=== PATIENT | female | born 1990 | race African-American/Black ===

== ENCOUNTER → 2016-09-17 | Outpatient (CLI) | payer OTHER ==
[2016-02-19 19:19] VITALS: BP 138/82
[~2016-09-17] MED LIST: AMOX875T PO; HYDR15SO4 PO; NITR100C62 PO
--- NOTE | 2016-09-17 15:11 | RAD ---
Obstetrical ultrasound, 09/17/2016: History: , survey There is a single intrauterine fetus in a variable orientation. The biparietal diameter measures 5.0 cm compatible with a gestational age of 21-22 weeks. The femur length measurement suggest a gestational age of closer to 23 weeks. The average gestational age based on all of the measurements is 22 weeks and 0 days yielding a sonographic EDC of 01/21/2017. Normal activity and heart motion were seen. The heart rate was 152 bpm. No specific abnormality is detected. A normal amount of amniotic fluid is evident. The placenta lies anteriorly extending laterally on the left. Its inferior margin lies approximately 1.5 cm from the internal cervical os. The cervical length was best demonstrated on the post voiding views and measures 3.6 cm. IMPRESSION: 1. Single viable intrauterine fetus of 22 weeks gestational age as described above. 2. Low-lying placenta
== END | disposition home or self-care (01) ==
LOC: US 13:47
PROVIDERS: ATTEND Obstetrics & Gynecology
DX: O26.842 Uterine size-date discrepancy, second trimester (principal); Z3A.22 22 weeks gestation of pregnancy
CPT/HCPCS: 76805

== ENCOUNTER 2016-10-05 10:50 | Observation (INO) | payer OTHER ==
[2016-02-19 19:19] VITALS: BP 138/82
[2016-10-05] MEDS ORDERED: IV RINGERS,LACTATED 1000ML 1,000 ML IV SCH (11:28)
[2016-10-05 11:52] LABS: BILIRUBIN,URINE NEGATIVE (NEG); GLUCOSE,URINE NEGATIVE (NEG); NITRITE,URINE NEGATIVE (NEG); PH,URINE 6.5; PROTEIN,URINE NEGATIVE (NEG-TRACE); UROBILINOGEN,URINE 0.2 mg/dL (0.2 mg/dL)
== END 2016-10-05 13:05 | disposition home or self-care (01) ==
LOC: 3 SO LND 10:50
PROVIDERS: ADMIT Obstetrics & Gynecology; ATTEND Obstetrics & Gynecology
DX: O26.892 Other specified pregnancy related conditions, second trimester (principal); R10.2 Pelvic and perineal pain; Z3A.24 24 weeks gestation of pregnancy
CPT/HCPCS: 81003; G0378; G0379

== ENCOUNTER 2016-11-05 17:10 | Observation (INO) | payer OTHER ==
[2016-02-19 19:19] VITALS: BP 138/82
== END 2016-11-05 19:15 | disposition home or self-care (01) ==
LOC: 3 SO LND 17:10
PROVIDERS: ADMIT Obstetrics & Gynecology; ATTEND Obstetrics & Gynecology
DX: O26.893 Other specified pregnancy related conditions, third trimester (principal); R10.30 Lower abdominal pain, unspecified; Z3A.00 Weeks of gestation of pregnancy not specified
CPT/HCPCS: G0378; G0379

== ENCOUNTER → 2016-12-30 | Outpatient (CLI) | payer OTHER ==
[2016-02-19 19:19] VITALS: BP 138/82
--- NOTE | 2016-12-30 16:27 | RAD ---
EXAM: Obstetrics sonogram. HISTORY: Size and dates discrepancy. TECHNIQUE: Sonographic imaging of the gravid uterus was performed. COMPARISON: 09/17/2016. FINDINGS: There is a single intrauterine fetus in cephalic presentation with a heart rate of 132 bpm. There is body movement. The stomach, kidneys, spine and heart are unremarkable. There is a three-vessel umbilical cord. The amniotic fluid index is normal at 15.0 cm. There is an anterior placenta without evidence of placenta previa. The biparietal diameter is 8.4 cm, corresponding with 34 weeks and 0 days and the 4th percentile. The head circumference is 31.7 cm, corresponding with 35 weeks and 5 days and the 2nd percentile. The abdominal circumference is 32.6 cm, corresponding with 36 weeks and 3 days and the 57th percentile. The femoral length is 7.4 cm, corresponding with 37 weeks and 6 days and the 77th percentile. The head circumference to abdominal second ratio is 0.97. The estimated gestational age based on combined ultrasound measurements is 36 weeks and 0 days. The estimated weight is 2942 g. This corresponds at the 45th percentile for estimated gestational age based on LMP. IMPRESSION: Single intrauterine fetus in cephalic presentation with a heart rate of 132 bpm and estimated gestational age based on ultrasound measurements of 36 weeks and 0 days. The estimated weight is at the 45th percentile for estimated gestational age based on LMP. Note is made that the biparietal diameter and head circumference growth percentiles are significantly less than the abdominal circumference and femoral length percentiles, noted above. However, the head circumference to abdominal circumference ratio remains within normal limits.
== END | disposition home or self-care (01) ==
LOC: US 15:35
PROVIDERS: ATTEND Obstetrics & Gynecology
DX: O09.93 Supervision of high risk pregnancy, unspecified, third trimester (principal); O26.843 Uterine size-date discrepancy, third trimester; Z3A.36 36 weeks gestation of pregnancy
CPT/HCPCS: 76805

== ENCOUNTER 2017-01-01 20:46 | Observation (INO) | payer OTHER ==
[2016-02-19 19:19] VITALS: BP 138/82
[2017-01-01 21:22] LABS: BILIRUBIN,URINE NEGATIVE (NEG); GLUCOSE,URINE NEGATIVE (NEG); NITRITE,URINE NEGATIVE (NEG); PROTEIN,URINE NEGATIVE (NEG-TRACE); UROBILINOGEN,URINE 0.2 mg/dL (0.2 mg/dL)
[2017-01-01 21:32] LABS: BARBITURATES NEG (NEG); BENZODIAZEPINES NEG (NEG); CANNABINOIDS NEG (NEG); COCAINE NEG (NEG); METHADONE NEG (NEG); OPIATES NEG (NEG); PHENCYCLIDINE NEG (NEG)
[2017-01-01 21:33] LABS: RBC,URINE 0 /HPF (0-2); WBC,URINE OCC /HPF (0-4)
[2017-01-01 21:34] LABS: BACTERIA,URINE FEW /HPF (0-FEW); SQUAMOUS EPITHELIAL CELL,UR MOD /LPF
== END 2017-01-01 22:47 | disposition home or self-care (01) ==
LOC: 3 SO LND 20:46
PROVIDERS: ADMIT Obstetrics & Gynecology; ATTEND Obstetrics & Gynecology
DX: O62.9 Abnormality of forces of labor, unspecified (principal); Z3A.37 37 weeks gestation of pregnancy
CPT/HCPCS: 80307; 81001; G0378; G0379; G0479

== ENCOUNTER 2017-03-12 17:38 | Emergency (ER) | payer OTHER ==
[~2017-03-12] VITALS: Ht 170.2 cm; Wt 49.9 kg
[~2017-03-12 17:38] MED LIST changes: +IBUP-1060 PO
[2017-03-12 17:50] VITALS: BP 156/99
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
[2017-03-12] MEDS ORDERED: CYCL10TA2 PO (18:48)
[2017-03-12] MEDS ORDERED: NAPR500T4 PO (18:48)
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
== END 2017-03-12 18:55 | disposition home or self-care (01) ==
LOC: ER 17:38
DX: S20.219A Contusion of unspecified front wall of thorax, initial encounter (principal); F12.10 Cannabis abuse, uncomplicated; Y08.89XA Assault by other specified means, initial encounter; Y93.89 Activity, other specified; Y99.8 Other external cause status; Y92.89 Other specified places as the place of occurrence of the external cause
CPT/HCPCS: 71101; 99284

== ENCOUNTER 2017-11-06 19:21 | Emergency (ER) | payer SELFPAY, OTHER ==
[2017-11-07 07:10] LABS: NEGATIVE OBC STREP NEG; POSITIVE OBC STREP POS
== END 2017-11-06 20:15 | disposition home or self-care (01) ==
LOC: ER 20:15
DX: H66.93 Otitis media, unspecified, bilateral (principal); J34.89 Other specified disorders of nose and nasal sinuses; J02.9 Acute pharyngitis, unspecified
CPT/HCPCS: 87070; 87880; 99284

== ENCOUNTER 2018-01-02 13:26 | Emergency (ER) | payer SELFPAY ==
[~2018-01-02] VITALS: Ht 170.2 cm; Wt 54.4 kg
[~2018-01-02 13:26] MED LIST changes: +AMOX500C PO; +CYCL10TA2 PO; +NAPR-514 PO
[2018-01-02 15:20] VITALS: BP 113/60
--- NOTE | 2018-01-02 15:27 | RAD ---
Examination: 3 views of the right foot HISTORY: History of stepping. However, dorsal foot pain COMPARISON: None available. Findings/ impression: The alignment of the tarsal bones, tarsometatarsal joints, metatarsophalangeal joints grossly appears unremarkable. There is faint cortical lucency identified in the distal aspect of the medial cuneiform is seen only on the lateral view would be artifactual or a very subtle fracture. Correlate for point tenderness. Electronically signed by: Mustapha Perez MD (01/02/2018 3:23 PM) [facility]
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
[2018-01-02] MEDS ORDERED: HYDR-971 PO (15:44)
[2018-01-02] MEDS ORDERED: HYDROcodone/APAP 5/325MG 1 TAB TABLET PO ONE (16:45)
== END 2018-01-02 17:26 | disposition home or self-care (01) ==
LOC: ER 13:26
DX: S92.221A Displaced fracture of lateral cuneiform of right foot, initial encounter for closed fracture (principal); F17.210 Nicotine dependence, cigarettes, uncomplicated; X58.XXXA Exposure to other specified factors, initial encounter; Y93.01 Activity, walking, marching and hiking; Y92.096 Garden or yard of other non-institutional residence as the place of occurrence of the external cause; Y99.8 Other external cause status
CPT/HCPCS: 73630; 99284

== ENCOUNTER 2018-01-19 11:28 | Emergency (ER) | payer SELFPAY ==
[~2018-01-19] VITALS: Ht 170.2 cm; Wt 54.4 kg
[~2018-01-19 11:28] MED LIST changes: +HYDR-971 PO
[2018-01-19 12:23] LABS: BILIRUBIN,URINE NEGATIVE (NEG); CLARITY,URINE CLEAR; COLOR,URINE YELLOW; NITRITE,URINE NEGATIVE (NEG); PH,URINE 6.5; PROTEIN,URINE NEGATIVE (NEG-TRACE)
[2018-01-19 12:32] LABS: BASO % 0 % (0-3); EOS % 0 % (0-3); HEMATOCRIT 33.7 % (36.0-47.0); HEMOGLOBIN 11.4 g/dL (12.0-15.5); LYMPH # 1.2 x10^3/uL (1.0-4.8); LYMPH % 13 % (24-48); MEAN CORPUSCULAR HEMOGLOBIN 29 pg (25-35); MEAN CORPUSCULAR HGB CONC 34 g/dL (31-37); MEAN CORPUSCULAR VOLUME 85 fL (79-100); MONO # 0.8 x10^3/uL (0.0-1.1); MONO % 8 % (0-9); NEUT # 7.4 x10^3uL (1.8-7.7); NEUT % 78 % (31-73); PLATELET COUNT 239 x10^3/uL (140-400); RED BLOOD COUNT 3.95 x10^6/uL (3.50-5.40); RED CELL DISTRIBUTION WIDTH 15.5 % (11.5-14.5); WHITE BLOOD COUNT 9.4 x10^3/uL (4.0-11.0)
[2018-01-19 12:40] LABS: BACTERIA,URINE MODERATE /HPF (0-FEW); RBC,URINE OCC /HPF (0-2); SQUAMOUS EPITHELIAL CELL,UR MANY /LPF
[2018-01-19 12:43] LABS: CALCIUM 8.7 mg/dL (8.5-10.1); CREATININE 0.6 mg/dL (0.6-1.0); POTASSIUM 3.9 mmol/L (3.5-5.1)
[2018-01-19 12:49] LABS: ALBUMIN 3.4 g/dL (3.4-5.0); ALBUMIN/GLOBULIN RATIO 0.9 (1.0-1.7); TOTAL BILIRUBIN 0.3 mg/dL (0.2-1.0); TOTAL PROTEIN 7.2 g/dL (6.4-8.2)
[2018-01-19 13:14] VITALS: BP 117/75
--- NOTE | 2018-01-19 13:14 | RAD ---
Sonography of the neck Clinical indications: Left neck mass is FINDINGS: Sonography of the masses of the left side of the neck was performed. Multiple abnormally enlarged lymph nodes are seen in the submandibular region with the largest measuring 2.6 cm with abnormal cortical thickening. Therefore, neoplastic disease is a possibility. Sonography of the right neck was performed for comparison and no abnormally enlarged lymph nodes are seen here. IMPRESSION: Abnormally enlarged left submandibular lymphadenopathy. Neoplastic disease is a possibility. Electronically signed by: Bran Anthony MD (01/19/2018 1:11 PM) [facility]
--- NOTE | 2018-01-19 13:29 | PHYS DOC ---
Past Medical History Past Medical History: No Pertinent History Past Surgical History: No Surgical History Additional Information: 1/2 PACK A DAY Alcohol Use: None Drug Use: Marijuana Adult General Chief Complaint Chief Complaint: MULTIPLE COMPLAINTS [facility] HPI Patient is a 27 year old female who presents with nausea and vomiting times one week. The patient is also had constipation for a week and has found lumps on the left side of her neck 5 days along with left-sided ear pain. The patient had a positive home test one week ago with a last menstrual period of 11/11/17. The patient states that she was worried that she might have an ear infection so she was taking her mother's amoxicillin. 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 The patient does currently smoke. Review of Systems Review of Systems Constitutional: Denies fever or chills [] Eyes: Denies change in visual acuity, redness, or eye pain [] HENT: See history of present illness Respiratory: Denies cough or shortness of breath [] Cardiovascular: No additional information not addressed in HPI [] GI: See history of present illness : Denies dysuria or hematuria [] Musculoskeletal: Denies back pain or joint pain [] Integument: Denies rash or skin lesions [] Neurologic: Denies headache, focal weakness or sensory changes [] Endocrine: Denies polyuria or polydipsia [] All other systems were reviewed and found to be within normal limits, except as documented in this note. Current Medications Current Medications Current Medications Medications (Trade) Dose Ordered Sig/[facility] Start Time Stop Time Status Last Admin Dose Admin Acetaminophen (Tylenol) 1,000 mg 1X ONCE 01/19/18 14:00 01/19/18 14:01 DC 01/19/18 13:53 1,000 MG Allergies Allergies Allergies Coded Allergies Type Severity Reaction Last Updated Verified No Known Drug Allergies 05/11/13 No Physical Exam Physical Exam Constitutional: Well developed, well nourished, no acute distress, non-toxic appearance. [] HENT: Normocephalic, atraumatic, bilateral external ears normal, oropharynx moist, no oral exudates, nose normal. [] Eyes: PERRLA, EOMI, conjunctiva normal, no discharge. [] Neck: Normal range of motion, no tenderness, masses noted to the left neck that appear to be enlarged lymph nodes Cardiovascular:Heart rate regular rhythm, no murmur [] Lungs & Thorax: Bilateral breath sounds clear to auscultation [] Abdomen: Bowel sounds normal, soft, no tenderness, no masses, no pulsatile masses. [] Skin: Warm, dry, no erythema, no rash. [] Back: No tenderness, no CVA tenderness. [] Extremities: No tenderness, no cyanosis, no clubbing, ROM intact, no edema. [] Neurologic: Alert and oriented X 3, normal motor function, normal sensory function, no focal deficits noted. [] Psychologic: Affect normal, judgement normal, mood normal. [] Current Patient Data Vital Signs Vital Signs Date Time Temp Pulse Resp B/P (MAP) Pulse Ox O2 Delivery O2 Flow Rate FiO2 01/19/18 13:14 84 20 117/75 (89) 100 Room Air 01/19/18 11:52 98.7 98.7 Lab Values Laboratory Tests Test 01/19/18 12:00 01/19/18 12:14 01/19/18 12:21 Urine Collection Type Unknown Urine Color Yellow Urine Clarity Clear Urine pH 6.5 Urine Specific [place] 1.025 Urine Protein Negative mg/dL (NEG-TRACE) Urine Glucose (UA) Negative mg/dL (NEG) Urine Ketones (Stick) Negative mg/dL (NEG) Urine Blood Negative (NEG) Urine Nitrite Negative (NEG) Urine Bilirubin Negative (NEG) Urine Urobilinogen Dipstick 1.0 mg/dL (0.2 mg/dL) Urine Leukocyte Esterase Trace (NEG) Urine RBC Occ /HPF (0-2) Urine WBC 1-4 /HPF (0-4) Urine Squamous Epithelial Cells Many /LPF Urine Bacteria Moderate /HPF (0-FEW) Urine Mucus Marked /LPF POC Urine HCG, Qualitative Hcg positive (Negative) White Blood Count 9.4 x10^3/uL (4.0-11.0) Red Blood Count 3.95 x10^6/uL (3.50-5.40) Hemoglobin 11.4 g/dL (12.0-15.5) L Hematocrit 33.7 % (36.0-47.0) L Mean Corpuscular Volume 85 fL (79-100) Mean Corpuscular Hemoglobin 29 pg (25-35) Mean Corpuscular Hemoglobin Concent 34 g/dL (31-37) Red Cell Distribution Width 15.5 % (11.5-14.5) H Platelet Count 239 x10^3/uL (140-400) Neutrophils (%) (Auto) 78 % (31-73) H Lymphocytes (%) (Auto) 13 % (24-48) L Monocytes (%) (Auto) 8 % (0-9) Eosinophils (%) (Auto) 0 % (0-3) Basophils (%) (Auto) 0 % (0-3) Neutrophils # (Auto) 7.4 x10^3uL (1.8-7.7) Lymphocytes # (Auto) 1.2 x10^3/uL (1.0-4.8) Monocytes # (Auto) 0.8 x10^3/uL (0.0-1.1) Eosinophils # (Auto) 0.0 x10^3/uL (0.0-0.7) Basophils # (Auto) 0.0 x10^3/uL (0.0-0.2) Sodium Level 137 mmol/L (136-145) Potassium Level 3.9 mmol/L (3.5-5.1) Chloride Level 100 mmol/L (98-107) Carbon Dioxide Level 25 mmol/L (21-32) Anion Gap 12 (6-14) Blood Urea Nitrogen 5 mg/dL (7-20) L Creatinine 0.6 mg/dL (0.6-1.0) Estimated GFR (Cockcroft-Gault) 144.0 BUN/Creatinine Ratio 8 (6-20) Glucose Level 67 mg/dL (70-99) L Calcium Level 8.7 mg/dL (8.5-10.1) Total Bilirubin 0.3 mg/dL (0.2-1.0) Aspartate Amino Transferase (AST) 26 U/L (15-37) Alanine Aminotransferase (ALT) 26 U/L (14-59) Alkaline Phosphatase 71 U/L (46-116) Total Protein 7.2 g/dL (6.4-8.2) Albumin 3.4 g/dL (3.4-5.0) Albumin/Globulin Ratio 0.9 (1.0-1.7) L Laboratory Tests 01/19/18 12:21 Laboratory Tests 01/19/18 12:21 EKG EKG [] Radiology/Procedures Radiology/Procedures [] PATIENT: KATI MAGDALENO ACCOUNT: [id number] : 1990 LOCATION: ER AGE: 27 SEX: F EXAM STATUS: REG ER ORD. PHYSICIAN: NANCY COBB APRN REASON: masses to left neck PROCEDURE: NECK SOFT TISSUE Sonography of the neck Clinical indications: Left neck mass is FINDINGS: Sonography of the masses of the left side of the neck was performed. Multiple abnormally enlarged lymph nodes are seen in the submandibular region with the largest measuring 2.6 cm with abnormal cortical thickening. Therefore, neoplastic disease is a possibility. Sonography of the right neck was performed for comparison and no abnormally enlarged lymph nodes are seen here. IMPRESSION: Abnormally enlarged left submandibular lymphadenopathy. Neoplastic disease is a possibility. Electronically signed by: Aimee Anthony MD (01/19/2018 1:11 PM) [facility] DICTATED and SIGNED BY: AIMEE ANTHONY MD DATE: 01/19/18 6342 Course & Med Decision Making Course & Med Decision Making Pertinent Labs and Imaging studies reviewed. (See chart for details) []The patient is to follow-up with both obstetrics as well as oncology. The imaging did show that one of these enlarged masses could be neoplastic in origin. She is in agreement with this plan. Dragon Disclaimer Dragon Disclaimer This electronic medical record was generated, in whole or in part, using a voice recognition dictation system. 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 Follow-up with oncology for further evaluation of the enlarged lymph nodes in your neck. Take a vitamin every day. Problem Qualifiers NANCY COBB APRN Jan 19, 2018 13:29
[2018-01-19] MEDS ORDERED: ACETAMINOPHEN 500 MG TABLET PO ONE (14:00)
== END 2018-01-19 14:06 | disposition home or self-care (01) ==
LOC: ER 11:28
DX: O21.8 Other vomiting complicating pregnancy (principal); O99.331 Smoking (tobacco) complicating pregnancy, first trimester; R59.0 Localized enlarged lymph nodes; H92.02 Otalgia, left ear; Z3A.01 Less than 8 weeks gestation of pregnancy
CPT/HCPCS: 36415; 76536; 80053; 81001; 81025; 85025; 87086; 99285-25

== ENCOUNTER → 2018-02-09 | Outpatient (CLI) | payer SELFPAY ==
[~2018-02-09] VITALS: Ht 170.2 cm; Wt 54.4 kg
[2018-02-09 10:42] LABS: BASO % 0 % (0-3); EOS # 0.1 x10^3/uL (0.0-0.7); EOS % 1 % (0-3); HEMATOCRIT 34.8 % (36.0-47.0); HEMOGLOBIN 11.3 g/dL (12.0-15.5); LYMPH # 1.6 x10^3/uL (1.0-4.8); LYMPH % 13 % (24-48); MEAN CORPUSCULAR HEMOGLOBIN 28 pg (25-35); MEAN CORPUSCULAR HGB CONC 32 g/dL (31-37); MEAN CORPUSCULAR VOLUME 85 fL (79-100); MONO # 0.6 x10^3/uL (0.0-1.1); MONO % 5 % (0-9); NEUT # 9.8 x10^3uL (1.8-7.7); NEUT % 81 % (31-73); PLATELET COUNT 343 x10^3/uL (140-400); RED BLOOD COUNT 4.08 x10^6/uL (3.50-5.40); RED CELL DISTRIBUTION WIDTH 15.7 % (11.5-14.5); WHITE BLOOD COUNT 12.1 x10^3/uL (4.0-11.0)
[2018-02-09 10:54] VITALS: BP 127/72
[2018-02-09 11:02] LABS: PROTHROMBIN TIME PATIENT 12.8 SEC (11.7-14.0)
--- NOTE | 2018-02-09 16:11 | RAD ---
Sonography of the neck Clinical indications: Left neck mass is FINDINGS: Sonography of the masses of the left side of the neck was performed. Multiple abnormally enlarged lymph nodes are seen in the submandibular region with the largest measuring 2.6 cm with abnormal cortical thickening. Therefore, neoplastic disease is a possibility. Sonography of the right neck was performed for comparison and no abnormally enlarged lymph nodes are seen here. IMPRESSION: Abnormally enlarged left submandibular lymphadenopathy. Neoplastic disease is a possibility. Electronically signed by: Bran Anthony MD (01/19/2018 1:11 PM) [facility]
== END | disposition home or self-care (01) ==
LOC: INTRAD 10:01
PROVIDERS: ATTEND Internal Medicine Hematology & Oncology
DX: R59.1 Generalized enlarged lymph nodes (principal); Z79.01 Long term (current) use of anticoagulants
CPT/HCPCS: 36415; 76536; 85025; 85610; 85730

== ENCOUNTER 2018-04-07 15:46 | Emergency (ER) | payer SELFPAY ==
[2018-02-09 10:54] VITALS: BP 127/72
[~2018-04-07 15:46] MED LIST changes: +HYDR-3164 PO; -HYDR-971 PO; -HYDR15SO4 PO; +HYDR15SO6 PO
== END 2018-04-07 16:49 | disposition left against medical advice (07) ==
LOC: ER 15:46
DX: H92.02 Otalgia, left ear (principal); Z53.21 Procedure and treatment not carried out due to patient leaving prior to being seen by health care provider

== ENCOUNTER 2018-07-13 14:26 | Inpatient (IN) | payer MEDICAID ==
[~2018-07-13] VITALS: Ht 157.5 cm; Wt 57.2 kg
[2018-07-13] MEDS ORDERED: ACETAMINOPHEN 325 MG TABLET. PO PRN ×2 (14:30→19:00)
[2018-07-13] MEDS ORDERED: OXYTOCIN 30 UNIT/500 ML PREMIX 500 ML IV ONE (14:42)
[2018-07-13] MEDS ORDERED: IV RINGERS,LACTATED 1000ML 1,000 ML IV SCH (14:47)
[2018-07-13] MEDS ORDERED: miSOPROStol 200 MCG TABLET ONE ×2 (14:52→15:00)
[2018-07-13] MEDS ORDERED: LIDOCAINE 1% PF 30 ML VIAL. INJ PRN (15:00)
[2018-07-13] MEDS ORDERED: 0.9 % SODIUM CHLORIDE 10 ML DISP.SYRIN. IV PRN ×2 (15:00→19:00)
[2018-07-13] MEDS ORDERED: fentaNYL PF VIAL 100 MCG/2 ML VIAL IV PRN (15:00)
[2018-07-13] MEDS ORDERED: IV RINGERS,LACTATED 1000ML 1,000 ML IV PRN (15:00)
[2018-07-13] MEDS ORDERED: TERBUTALINE 1 MG/ML VIAL. SQ PRN (15:00)
[2018-07-13] MEDS ORDERED: OXYTOCIN PREMIX 30 UNIT/500 ML BAG. IV ONE (15:00)
[2018-07-13] MEDS ORDERED: OXYTOCIN 30 UNIT/500 ML PREMIX 500 ML IV PRN ×3 (15:00→19:00)
[2018-07-13 15:23] LABS: BILIRUBIN,URINE NEGATIVE (NEG); CLARITY,URINE CLEAR; COLOR,URINE YELLOW; NITRITE,URINE POSITIVE (NEG); PROTEIN,URINE NEGATIVE (NEG-TRACE)
[2018-07-13 15:30] LABS: BARBITURATES NEG (NEG); BENZODIAZEPINES NEG (NEG); CANNABINOIDS NEG (NEG); COCAINE POS (NEG); METHADONE NEG (NEG); OPIATES POS (NEG); PHENCYCLIDINE NEG (NEG)
[2018-07-13 15:36] LABS: PROTHROMBIN TIME PATIENT 12.6 SEC (11.7-14.0)
[2018-07-13 15:36] LABS: AMPHETAMINE/METHAMPHETAMINE NEG (NEG)
[2018-07-13 15:37] LABS: SQUAMOUS EPITHELIAL CELL,UR MANY /LPF
[2018-07-13 15:38] LABS: BACTERIA,URINE MANY /HPF (0-FEW)
[2018-07-13 15:45] LABS: BASO % 0 % (0-3); D-DIMER 1.57 ug/mlFEU (0.00-0.50); EOS # 0.1 x10^3/uL (0.0-0.7); EOS % 1 % (0-3); HEMATOCRIT 31.5 % (36.0-47.0); LYMPH # 2.1 x10^3/uL (1.0-4.8); LYMPH % 20 % (24-48); MEAN CORPUSCULAR HEMOGLOBIN 27 pg (25-35); MEAN CORPUSCULAR HGB CONC 32 g/dL (31-37); MEAN CORPUSCULAR VOLUME 85 fL (79-100); MONO # 0.7 x10^3/uL (0.0-1.1); MONO % 7 % (0-9); NEUT # 7.6 x10^3uL (1.8-7.7); NEUT % 72 % (31-73); PLATELET COUNT 283 x10^3/uL (140-400); RED BLOOD COUNT 3.73 x10^6/uL (3.50-5.40); RED CELL DISTRIBUTION WIDTH 16.1 % (11.5-14.5); WHITE BLOOD COUNT 10.5 x10^3/uL (4.0-11.0)
[2018-07-13 17:30] VITALS: BP 122/68
--- NOTE | 2018-07-13 18:51 | PDOC1 ---
OB - History Hx of Present Care: None Ultrasounds: No ultrasounds Obstetrical Complications: Other (placental abruption) Medical Complications: Other (drug abuse) Past Family/Social History * Past Medical, Surgical, Family and Obstetric Histories reviewed from chart. Blood Type: Unknown Rubella: Unknown RPR/VDRL: Unknown GBS Status: Unknown HBsAG: Unknown OB - Chief Complaint & HPI Date of Admission: Date of Admission: Jul 13, 2018 at 14:26 Chief Complaint/History : 5 Para: 4 EGA: 32 Reason for admission: labor, vaginal bleeding Admission Nurse Assessment Rev: Yes OB - Admission Exam Physical Exam Vitals: VS - Last 72 Hours, by Label Date Time Temp Pulse Resp B/P (MAP) Pulse Ox O2 Delivery O2 Flow Rate FiO2 07/13/18 17:30 98.3 74 18 122/68 (86) 98 Room Air 98.3 07/13/18 15:13 18 Room Air HEENT: Normal Heart: Other (tachycardia) Lungs: Clear Abdomen: Soft, Tender Extremities: No tenderness or swelling Reflexes: Normal Cervical Dilatation: 10cm Effacement: 100% Station: +3 Membranes: Ruptured Amniotic Fluid: Clear Heart Rate: Normal Accelerations: Accelerations Present Decelerations: No decelerations 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 KELLIE PINEDA Jr, MD Jul 13, 2018 18:51
--- NOTE | 2018-07-13 18:53 | PDOC ---
VAGINAL DELIVERY DATE DATE: 07/13/18 TIME: 18:51 : 5 Para: 5 EGA: 32 VAGINAL DELIVERY: VTX VACCUM ASSISTED: No PLACENTA: Spontaneous 4/7 SEX: Female WEIGHT Weight [1775 gm ] Nuchal Cord: No Amniotic Fluid: Clear PAIN: Natural EPISIOTOMY: No EXTENSION: No EBL 300 ml COMPLICATIONS none CONDITION pt. gaurded Signs of Intrauterine Infectio: None Shoulder Dystocia: No DIAGNOSIS placental abruption 45% KELLIE PINEDA Jr, MD Jul 13, 2018 18:53
[2018-07-13] MEDS ORDERED: MAGNESIUM HYDROXIDE 2,400 MG/30 ML ORAL.SUSP. PO PRN (19:00)
[2018-07-13] MEDS ORDERED: SIMETHICONE 80 MG TAB.CHEW PO PRN (19:00)
[2018-07-13] MEDS ORDERED: MAG HYDROX/ALUMINUM HYD/SIMETH 30 ML ORAL.SUSP PO PRN (19:00)
[2018-07-13] MEDS ORDERED: DOCUSATE SODIUM 100 MG CAPSULE. PO PRN (19:00)
[2018-07-13] MEDS ORDERED: IBUPROFEN 400 MG TABLET. PO PRN (19:00)
[2018-07-13] MEDS ORDERED: ZOLPIDEM 5 MG TABLET. PO PRN (19:00)
[2018-07-13] MEDS ORDERED: MMR per PROTOCOL. MC PRN (19:00)
[2018-07-13] MEDS ORDERED: PHENYLEPH/MINERAL OIL/PETROLAT RECTAL OINTMENT 28GM TUBE. RC PRN (19:00)
[2018-07-13] MEDS ORDERED: oxyCODONE/APAP 5/325 1 TAB TABLET PO PRN (19:00)
[2018-07-13] MEDS ORDERED: diphenhydrAMINE HCL 25 MG CAPSULE PO PRN (19:00)
[2018-07-13] MEDS ORDERED: BENZOCAINE 20% TOPICAL AEROSOL SPRAY 57GM CAN. TP PRN (19:00)
[2018-07-13] MEDS ORDERED: HYDROCORTISONE 1% TOPICAL OINTMENT 30GM TUBE. TP PRN (19:00)
[2018-07-13] MEDS: IBUPROFEN 400 MG TABLET. PO PRN (19:11)
[2018-07-13 22:10] VITALS: BP 110/72
[2018-07-14] MEDS: IBUPROFEN 400 MG TABLET. PO PRN ×2 (02:59→08:54)
[2018-07-14 04:36] LABS: BASO % 0 % (0-3); EOS # 0.2 x10^3/uL (0.0-0.7); EOS % 1 % (0-3); HEMATOCRIT 26.8 % (36.0-47.0); HEMOGLOBIN 8.5 g/dL (12.0-15.5); LYMPH % 16 % (24-48); MEAN CORPUSCULAR HEMOGLOBIN 27 pg (25-35); MEAN CORPUSCULAR HGB CONC 32 g/dL (31-37); MEAN CORPUSCULAR VOLUME 84 fL (79-100); MONO # 0.8 x10^3/uL (0.0-1.1); MONO % 6 % (0-9); NEUT # 9.8 x10^3uL (1.8-7.7); NEUT % 77 % (31-73); PLATELET COUNT 228 x10^3/uL (140-400); RED BLOOD COUNT 3.21 x10^6/uL (3.50-5.40); RED CELL DISTRIBUTION WIDTH 15.8 % (11.5-14.5); WHITE BLOOD COUNT 12.8 x10^3/uL (4.0-11.0)
[2018-07-14 05:00] VITALS: BP 106/70
[2018-07-14] MEDS ORDERED: FERROUS SULFATE 325 MG TABLET. PO SCH (08:00)
--- NOTE | 2018-07-14 09:36 | PDOC3 ---
OB DISCHARGE SUMMARY DATE OF ADMISSION: 07/13/18 DATE OF DISCHARGE: 07/14/18 REASON FOR ADMISSION: labor INTRAPARTUM PROCEDURES: Spontanous Vag Deliv DISCHARGE DIAGNOSIS: Others (PTD) DISCHARGE INFORMATION: Activity (ad anibal), Diet (regular), Instructions (pelvic rest x 6 wks) HOSPITAL COURSE 32 wks with no care delivered . Pt. positive for opioids and cocaine. Infant transferred to [facility] for NICU support. KELLIE PINEDA Jr, MD Jul 14, 2018 09:36
[2018-07-14] MEDS ORDERED: IBUP-1060 PO (09:37)
--- NOTE | 2018-07-14 09:38 | DISCH ---
DISCHARGE INSTRUCTIONS Condition on Discharge Condition on Discharge: Stable Activity After Discharge Activity Instructions for Disc: Activity as tolerated Bathing Instructions: No Tub Bath until see Lifting Instructions after Dis: No heavy lifting, No pulling or pushing, Do not lift >10 pounds Exercise Instruction after Dis: Walk 15 min, 3 x per day Driving Instructions after Dis: Do not drive today Weight Bearing Status after Di: As tolerated Diet after Discharge Diet after Discharge: Regular Diet Texture: Regular Checks after Discharge Checks after discharge: Check your Temp as needed Contacting the DREma after DC Call your doctor for: Concerns you may have Follow-Up Follow up with: Dr. Mays in 4 wks Treatment/Equipment after DC Adaptive Equipment Issued: None KELLIE MAYS Jr, MD Jul 14, 2018 09:38
[2018-07-14 10:29] VITALS: BP 110/72
--- NOTE | 2018-07-15 17:07 | PATHOLOGY ---
[facility] [place] Accession Number: [id number] . 01 Material submitted: . placenta - PLACENTA AND CORD . 01 Clinician provided ICD-10: n . 01 Clinical history: . Spontaneous vaginal , history of substance abuse, please see delivery summary. . 02 Diagnosis: 339 gram placenta of an estimated 32-33 weeks gestation with attached umbilical cord and with separate detached segments of placental membranes and placental disc tissue: - Peripheral placental infarct. 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 - thrombotic vasculopathy, focal. - Focal necrosis and recent hemorrhage of placental membranes. (JPM:william; 07/15/2018) MBR/07/15/2018 . 02 Electronically signed: . Gadiel Meléndez MD, Pathologist NPI- [id number] . 01 Gross description: . Received in formalin labeled "Oskar Lana, placenta" is a nolan placenta with attached umbilical cord and separate detached segments of membranes. The placental disc measures 13.3 x 13.3 x 3.7 cm, and separate portions of placental tissue are present within the container. (Described below). The membranes are received completely detached from the placental disc, and in numerous fragments within the container. The membranes are slightly cloudy and thickened. The membrane i nsertion appears to be circum-marginate. The umbilical cord measures 24.2 cm in length, 1.4 cm in diameter, contains three vessels and inserts eccentrically, 2.9 cm from the closest placental margin. There are no true knots in the umbilical cord. The additional placental tissue within the container measures in aggregate 8.5 x 7.6 x 1.5 cm. The trimmed placental weight and separate placental tissue weighs in aggregate 339 grams. The surface is blue-rucker with minimal subchorionic fibrin. Amnion nodosum is not present. Cysts are not present. The intactness of the cotyledons cannot be determined due to the fragmented nature of the specimen. Sectioning through the placental disc reveals two cornell-white possible infarcts, comprising 20% of the cut surface and measuring 7.5 x 2.7 x 2.5 cm and 6.8 x 4.5 x 1.9 cm. Sections are submitted as follows: . A1 proximal and distal umbilical cord A2 membranes, rolled A3 employee relations representative peripheral placenta A4 employee relations representative central placenta [place] 07/14/2018[place] SYC/SYC . 02 Pathologist provided ICD-10: M31.8, Z3A.32, Z37.0 . 02 CPT . 052218 Specimen Comment: A courtesy copy of this report has been sent to Specimen Comment: [phone]. Specimen Comment: Report sent to Performed at: 01 [facility] [address], [place], [place] [id number] MD Omar Ballesteros MD Phone: [phone] Performed at: [address] [facility] [address] [place], [place] [id number] MD Gadiel Meléndez MD Phone: [phone]
== END 2018-07-14 10:32 | disposition home or self-care (01) | DRG 805 ==
LOC: 3 SO LND 14:26 → OBSVTOIN 14:26 → 3 NORTH 16:48
PROVIDERS: ADMIT Obstetrics & Gynecology; ATTEND Obstetrics & Gynecology
PROC: 10E0XZZ Delivery of Products of Conception, External Approach (ICD-10-PCS; principal; 2018-07-13)
DX: O45.93 Premature separation of placenta, unspecified, third trimester (principal); O60.14X0 Preterm labor third trimester with preterm delivery third trimester, not applicable or unspecified; Z37.0 Single live birth; O99.324 Drug use complicating childbirth; F11.10 Opioid abuse, uncomplicated; F14.10 Cocaine abuse, uncomplicated; Z3A.32 32 weeks gestation of pregnancy
CPT/HCPCS: 36415; 80307; 81001; 85025; 85049; 85379; 85384; 85610; 85730; 86592; 86762; 86850; 86900; 86901; 87086; 87186; 87340; 88307; J2590; J3010

== ENCOUNTER 2020-12-06 11:35 | Emergency (ER) | payer MEDICAID ==
[~2020-12-06] VITALS: Ht 172.7 cm; Wt 64.0 kg
[2020-12-06 11:53] VITALS: BP 135/89
[2020-12-06] MEDS ORDERED: CEPH500C PO (12:12)
--- NOTE | 2020-12-06 12:12 | PHYS DOC ---
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 The precinct police lieutenant states that all the need is a paper that states that she needs a prescription filled and they will fill it for her at the Police station. Patient states that she vomited and she had 104 fever this morning. Patient is afebrile and her vital signs are normal. Review of Systems: Review of Systems: Constitutional: Denies fever or chills. [] Eyes: Denies change in visual acuity. [] HENT: Denies nasal congestion or sore throat. [] Respiratory: Denies cough or shortness of breath. [] Cardiovascular: Denies chest pain or edema. [] GI: Denies abdominal pain, nausea, vomiting, bloody stools or diarrhea. [] : Denies dysuria. [] Musculoskeletal: Denies back pain or joint pain. [] Integument: Denies rash. +Sores [] Neurologic: Denies headache, focal weakness or sensory changes. [] Endocrine: Denies polyuria or polydipsia. [] Lymphatic: Denies swollen glands. [] Psychiatric: Denies depression or anxiety. [] Heart Score: C/O Chest Pain: No Risk Factors: Risk Factors: DM, Current or recent (<one month) smoker, HTN, HLP, family history of CAD, obesity. Risk Scores: Score 0 - 3: 2.5% MACE over next 6 weeks - Discharge Home Score 4 - 6: 20.3% MACE over next 6 weeks - Admit for Clinical Observation Score 7 - 10: 72.7% MACE over next 6 weeks - Early Invasive Strategies Allergies: Allergies: Allergies Coded Allergies Type Severity Reaction Last Updated Verified No Known Drug Allergies 12/06/20 No Physical Exam: PE: Constitutional: Well developed, well nourished, no acute distress, non-toxic appearance. [] HENT: Normocephalic, atraumatic, bilateral external ears normal, oropharynx moist, no oral exudates, nose normal. [] Eyes: PERRLA, EOMI, conjunctiva normal, no discharge. [] Neck: Normal range of motion, no tenderness, supple, no stridor. [] Cardiovascular:Heart rate regular rhythm, no murmur [] Lungs & Thorax: Bilateral breath sounds clear to auscultation [] Abdomen: Bowel sounds normal, soft, no tenderness, no masses, no pulsatile masses. [] Skin: Warm, dry, no erythema, no rash. Patient has sporadic areas where it looks like they are healing bug bites or from her picking. No cellulitis. No signs of infection. No drainage. [] Back: No tenderness, no CVA tenderness. [] Extremities: No tenderness, no cyanosis, no clubbing, ROM intact, no edema. [] Neurologic: Alert and oriented X 3, normal motor function, normal sensory function, no focal deficits noted. [] Psychologic: Affect normal, judgement normal, mood normal. [] Current Patient Data: Vital Signs: Vital Signs Date Time Temp Pulse Resp B/P (MAP) Pulse Ox O2 Delivery O2 Flow Rate FiO2 12/06/20 11:53 98.0 95 15 135/89 98 98.0 EKG: EKG: [] Radiology/Procedures: Radiology/Procedures: [] Course & Med Decision Making: Course & Med Decision Making Pertinent Labs and Imaging studies reviewed. (See chart for details) See HPI. Alert and oriented x4. Patient is nonseptic appearing. Lungs clear to auscultation all lobes. Abdomen soft and nontender. Vital signs are completely normal. Speaks in full clear sentences. Mucous membranes are moist. Skin pink warm and dry. Patient has spots where it looks like she has been picking or has been bitten by a bug. There is no cellulitis, drainage or signs of infection. When looking back patient was not here in the hospital yesterday. I will prescribe her some Keflex antibiotic and she can be discharged home. [] Dragon Disclaimer: Dragon Disclaimer: This electronic medical record was generated, in whole or in part, using a voice recognition dictation system. Departure Departure Impression: Primary Impression: Bug bites Qualified Codes: W57.XXXA - Bitten or stung by nonvenomous insect and other nonvenomous arthropods, initial encounter Additional Impression: Encounter for medical screening examination Disposition: HOME / SELF CARE / HOMELESS Condition: STABLE Referrals: NO PCP (PCP) Patient Instructions: Insect Bite, Medical Screening Exam Additional Instructions: Follow-up with a primary care provider. Take medication as prescribed and with food. Drink plenty of fluids. Scripts Cephalexin (KEFLEX) 500 Mg Capsule 1 CAP PO TID, #21 CAP Prov: GREGORIO MARTÍNEZ APRN 12/06/20 GREGORIO MARTÍNEZ APRN Dec 06, 2020 12:12
== END 2020-12-06 12:34 | disposition home or self-care (01) ==
LOC: ER 11:35
DX: Z00.8 Encounter for other general examination (principal); T14.8XXA Other injury of unspecified body region, initial encounter; F17.200 Nicotine dependence, unspecified, uncomplicated; W57.XXXA Bitten or stung by nonvenomous insect and other nonvenomous arthropods, initial encounter; Y93.89 Activity, other specified; Y92.89 Other specified places as the place of occurrence of the external cause; Y99.8 Other external cause status
CPT/HCPCS: 99283